=== PATIENT | female | born 1980 | race Caucasian/White ===

== ENCOUNTER 2019-01-23 19:29 | Emergency (ER) | payer BC, OTHER, SELFPAY ==
--- NOTE | 2019-01-23 19:41 | ERPHSYRPT ---
- History of Present Illness Time Seen by Provider: 01/23/19 19:41 Source: patient Exam Limitations: no limitations Physician History: 38 y/o white female presents with 3 day h/o cough, sore throat, bilat earaches and generalized body aches. no sig h/o fevers. no abd pain, no vomiting or diarrhea. however, pt has not eaten or drank much in last 3 days. Timing/Duration: day(s) (3) Cough Quality/Degree: mild, dry cough Possible Cause: no prior episodes Modifying Factors: Improves With: coughing Associated Symptoms: cough, earache (bilat), muscle aches, sore throat, No chest pain/soreness, No shortness of breath Allergies/Adverse Reactions: No Known Drug Allergies Allergy (Unverified 01/23/19 19:53) Hx Tetanus, Diphtheria Vaccination/Date Given: Yes Hx Influenza Vaccination/Date Given: Yes Hx Pneumococcal Vaccination/Date Given: No - Review of Systems Constitutional: No Symptoms Eyes: No Symptoms Ears, Nose, & Throat: Ear Pain, Throat Pain Respiratory: Cough Cardiac: No Symptoms Abdominal/Gastrointestinal: No Symptoms Genitourinary Symptoms: No Symptoms Musculoskeletal: Arthralgias, Myalgias Skin: No Symptoms Neurological: No Symptoms Psychological: No Symptoms Endocrine: No Symptoms Hematologic/Lymphatic: No Symptoms Immunological/Allergic: No Symptoms All Other Systems: Reviewed and Negative - Past Medical History Pertinent Past Medical History: No Neurological History: No Pertinent History ENT History: No Pertinent History Cardiac History: No Pertinent History Respiratory History: No Pertinent History Endocrine Medical History: No Pertinent History Musculoskeletal History: No Pertinent History GI Medical History: No Pertinent History History: No Pertinent History Psycho-Social History: Anxiety Female Reproductive Disorders: No Pertinent History - Past Surgical History Past Surgical History: Yes Neuro Surgical History: No Pertinent History Cardiac: No Pertinent History Respiratory: No Pertinent History Gastrointestinal: Cholecystectomy Genitourinary: No Pertinent History Musculoskeletal: No Pertinent History Female Surgical History: Hysterectomy, Section Other Surgical History: TONSILS,GALLBLADDER - Social History Smoking Status: Current some day smoker How long have you smoked: 5 YEARS Exposure to second hand smoke: Yes Drug Use: none Patient Lives Alone: No - Nursing Vital Signs Nursing Vital Signs: Initial Vital Signs Temperature 99.6 F 01/23/19 19:37 Pulse Rate 95 H 01/23/19 19:37 Respiratory Rate 15 01/23/19 19:37 Blood Pressure 135/78 01/23/19 19:37 O2 Sat by Pulse Oximetry 96 01/23/19 19:37 Pain Scale Pain Intensity 7 - Physical Exam General Appearance: no apparent distress, alert, anxiety Eye Exam: PERRL/EOMI, eyes nml inspection Ears, Nose, Throat Exam: normal ENT inspection, TMs normal, moist mucous membranes, pharyngeal erythema (mild) Neck Exam: normal inspection, non-tender, supple, full range of motion Respiratory Exam: normal breath sounds, lungs clear, airway intact, No chest tenderness, No respiratory distress Cardiovascular Exam: regular rate/rhythm, normal heart sounds, normal peripheral pulses Gastrointestinal/Abdomen Exam: soft, normal bowel sounds, No tenderness Pelvic Exam: not done Rectal Exam: not done Back Exam: normal inspection, normal range of motion, No CVA tenderness, No vertebral tenderness Extremity Exam: normal inspection, normal range of motion, pelvis stable Neurologic Exam: alert, oriented x 3, cooperative, 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, normal mood/affect Skin Exam: normal color, warm, dry Lymphatic Exam: No adenopathy SpO2 Interpretation: normal O2 Delivery: Room Air - Course Nursing assessment & vital signs reviewed: Yes Ordered Tests: Active Orders 24 hr Category Date Time Status IV Insertion STAT Care 01/23/19 21:07 Active Pulse Oximetry (ED) STAT Care 01/23/19 21:07 Active BMP Stat Lab 01/23/19 21:07 Ordered CBC W DIFF Stat Lab 01/23/19 21:07 Ordered [place] Screen Stat Lab 01/23/19 Ordered Medication Summary Generic Name Dose Route Start Last Admin Trade Name Freq PRN Reason Stop Dose Admin Sodium Chloride 1,000 mls @ 999 mls/hr 01/23/19 21:07 Sodium Chloride 0.9% 1000 Ml IV 01/23/19 22:07 .[id number] STA Discontinued Medications Generic Name Dose Route Start Last Admin Trade Name Freq PRN Reason Stop Dose Admin Hydrocodone Bitart/Acetaminophen 10 ml 01/23/19 21:09 Hydrocodone-Acetamin 2.5-108/5 Ml Solution PO 01/23/19 21:10 STAT STA Ondansetron HCl 4 mg 01/23/19 21:07 Zofran 4 Mg/2 Ml Vial IV 01/23/19 21:08 STAT STA Oseltamivir Phosphate 75 mg 01/23/19 21:09 Tamiflu 75mg Capsule PO 01/23/19 21:10 STAT ONE Lab/Rad Data: Laboratory Results 01/23/19 Range/Units Unknown Influenza Type A Ag POSITIVE (NEGATIVE) Influenza Type B Ag NEGATIVE (NEGATIVE) RSV (PCR) NEGATIVE (Negative) Group A Strep Antibody NEGATIVE (NEGATIVE) - Progress Progress: improved, re-examined Air Movement: good Blood Culture(s) Obtained: No Antibiotics given: No Counseled pt/family regarding: lab results, diagnosis, need for follow-up, rad results - Departure Departure Disposition: Home Clinical Impression: Influenza A Condition: Stable Critical Care Time: No Referrals: Gina Milner NP [NON-STAFF PHY W/O PRIVILEGES] - Additional Instructions: drink plenty of fluids. add ibuprofen for pain and fever. Forms: Work/School Release Form Prescriptions: Ondansetron ODT 4 MG [Zofran Odt 4 mg] 4 mg PO Q6H PRN PRN #10 tab.rapdis PRN Reason: Vomiting Hydrocodone Bit/Acetaminophen [Hydrocodone-Acetaminophen Soln] 10 ml PO Q6H # 120 ml Oseltamivir 75 mg [Tamiflu 75MG Capsule] 75 mg PO BID #10 cap
[2019-01-23 21:04] LABS: Group A Strep NEGATIVE (NEGATIVE)
[2019-01-23 21:05] LABS: INFLUENZA A POSITIVE (NEGATIVE); INFLUENZA B NEGATIVE (NEGATIVE); RESPIRATORY SYNCTIAL VIRUS NEGATIVE (Negative)
[2019-01-23] MEDS ORDERED: Sodium Chloride 0.9% 1000 ML 1,000 ML IV STA (21:07)
[2019-01-23] MEDS ORDERED: Zofran 4 MG/2 ML VIAL IV STA (21:07)
[2019-01-23] MEDS ORDERED: Tamiflu 75MG Capsule PO ONE ×2 (21:09→21:28)
[2019-01-23] MEDS ORDERED: HYDROCODONE-ACETAMIN 2.5-108/5 ML SOLUTION PO STA (21:09)
[2019-01-23] MEDS ORDERED: Zofran 4 MG/2 ML VIAL ONE (21:28)
[2019-01-23] MEDS ORDERED: HYDROCODONE-ACETAMIN 2.5-108/5 ML SOLUTION ONE (21:28)
[2019-01-23] MEDS ORDERED: Sodium Chloride 0.9% 1000 ML 1,000 ML ONE (21:28)
[2019-01-23 21:31] LABS: Absolute Neutrophil Ct (ANC) 5.98 (1.4-6.9); BASOPHIL % 0.3 % (0.0-0.4); Basophil (Absolute #) 0.03 (0-0.4); Eosinophil (Absolute #) 0.29 (0-0.5); Hematocrit 44.1 % (35-47); Hemoglobin 14.4 gm/dl (12.0-16.0); Lymphocytes % 23.6 % (24.0-44.0); Mean Corpuscular Hemoglobin 30.7 pg (26-32); Mean Corpuscular Hgb Concent. 32.7 g/dl (32-36); Mean Platelet Volume 9.9 fl (6-9.5); Monocyte (Absolute #) 1.15 (0.0-1.3); Monocytes % 11.8 % (0.0-12.0); Neutrophil % 61.3 % (36.0-66.0); Platelet Count 221 K/mm3 (150-450); Red Blood Count 4.69 M/mm3 (4.1-5.4); Red Cell Distribution Width 13.5 % (11.5-14.0); White Blood Count 9.8 K/mm3 (4.0-10.5)
[2019-01-23 21:43] LABS: ANION GAP 14.4 MEQ/L (5-15); BLOOD UREA NITROGEN 13 mg/dL (7-17); CHLORIDE 101 mmol/L (98-107); Calcium 9.3 mg/dL (8.4-10.2); Carbon Dioxide 26 mmol/L (22-30); Creatinine 1 0.89 mg/dL (0.52-1.04); Glucose 118 mg/dL (74-106); SODIUM 138 mmol/L (137-145)
[2019-01-23 22:55] VITALS: BP 118/75; PULSE 82; O2SAT 94
== END 2019-01-23 22:45 | disposition home or self-care (01) ==
LOC: ED 19:29
DX: J11.1 Influenza due to unidentified influenza virus with other respiratory manifestations (principal); R05 Cough; H92.03 Otalgia, bilateral
CPT/HCPCS: 36000; 36415; 80048; 85025; 86308; 87631; 87651; 94760; 96360; 96374; 99284; J2405; A9270-GY

== ENCOUNTER 2019-10-19 15:45 | Emergency (ER) | payer BC ==
--- NOTE | 2019-10-19 15:50 | ERPHSYRPT ---
- History of Present Illness Time Seen by Provider: 10/19/19 15:49 Source: patient Exam Limitations: no limitations Physician History: This is a morbidly obese 39-year-old white female who has a history of chronic back pain and sciatica who left work this morning approximately 11-11 30 because she felt odd and numbness on the left side of her face and felt like she was not thinking her normal self. The onset of her symptoms were approximately greater than 4 hours ago. She arrives now with only numbness of her face that feels kind of like being numbed for dental procedure. She is speaking clearly and moving all of her extremities. She has no chest pain she has no shortness of breath she has no abdominal pain. She has no history of a CVA or TIAs in the past. Patient has no documented history of hypertension. Patient denies head injury Timing/Duration: hour(s) (More than 4 hours ago. Patient states approximately between 11 AM and 1130 this morning) Severity: mild Character of Deficits: Left Facial (Numbness) Deficits: no difficulties Baseline/Normal Cognition: alert oriented x 3 Current Cognition: alert oriented x 3 Baseline Gait: walks w/o assistance Associated Symptoms: paresthesia (Left face) Allergies/Adverse Reactions: No Known Drug Allergies Allergy (Verified 10/19/19 16:20) Home Medications: No Reportable Medications [No Reported Medications] 10/19/19 [History] Hx Tetanus, Diphtheria Vaccination/Date Given: Yes Hx Influenza Vaccination/Date Given: Yes Hx Pneumococcal Vaccination/Date Given: No Travel Risk - International Travel Have you traveled outside of the country in past 3 weeks: No - Coronavirus Screening Are you exhibiting any of the following symptoms?: No Close contact with a COVID-19 positive Pt in past 14-21 Days: No - Review of Systems Constitutional: No Symptoms Eyes: No Symptoms Ears, Nose, & Throat: No Symptoms Respiratory: No Symptoms Cardiac: No Symptoms Abdominal/Gastrointestinal: No Symptoms Genitourinary Symptoms: No Symptoms Musculoskeletal: No Symptoms Skin: No Symptoms Neurological: Parasthesia (Left face) Psychological: No Symptoms Endocrine: No Symptoms Hematologic/Lymphatic: No Symptoms Immunological/Allergic: No Symptoms All Other Systems: Reviewed and Negative - Past Medical History Pertinent Past Medical History: No Neurological History: No Pertinent History ENT History: No Pertinent History Cardiac History: No Pertinent History Respiratory History: No Pertinent History Endocrine Medical History: No Pertinent History Musculoskeletal History: No Pertinent History GI Medical History: No Pertinent History History: No Pertinent History Psycho-Social History: Anxiety Female Reproductive Disorders: No Pertinent History - Past Surgical History Past Surgical History: Yes Neuro Surgical History: No Pertinent History Cardiac: No Pertinent History Respiratory: No Pertinent History Gastrointestinal: Cholecystectomy Genitourinary: No Pertinent History Musculoskeletal: No Pertinent History Female Surgical History: Hysterectomy, Section Other Surgical History: TONSILS,GALLBLADDER - Social History Smoking Status: Current some day smoker How long have you smoked: 5 YEARS Exposure to second hand smoke: Yes Drug Use: none Patient Lives Alone: No - Female History Hx Now: No - Nursing Vital Signs Nursing Vital Signs: Initial Vital Signs O2 Sat by Pulse Oximetry 95 10/19/19 16:09 Pain Scale Pain Intensity 0 - [place] Coma Scale Best Eye Response ([place]): (4) open spontaneously Best Verbal Response ([place]): (5) oriented Best Motor Response ([place]): (6) obeys commands [place] Total: 15 - Physical Exam General Appearance: no apparent distress, alert, anxiety Eye Exam: bilateral eye: normal inspection, PERRL, EOMI Ears, Nose, Throat Exam: normal ENT inspection, moist mucous membranes Neck Exam: normal inspection, non-tender, supple, full range of motion Respiratory: normal breath sounds, lungs clear, airway intact, No chest t enderness, No respiratory distress Cardiovascular: regular rate/rhythm, normal heart sounds, normal peripheral pulses Gastrointestinal: soft, normal bowel sounds, No tenderness Pelvic Exam: not done Rectal Exam: not done Back Exam: normal inspection, normal range of motion, No CVA tenderness, No vertebral tenderness Extremity Exam: normal inspection, normal range of motion, pelvis stable Mental Status: alert, oriented x 3, cooperative advertising designer Exam: normal hearing, normal speech, PERRL Coordination/Gait: normal finger to nose, normal gait, normal cerebellar function Motor/Sensory: no motor deficit, no sensory deficit, no pronator drift Skin Exam: normal color, warm, dry SpO2 Interpretation: normal O2 Delivery: Room Air - Course Nursing assessment & vital signs reviewed: Yes EKG Interpreted by Me: RATE ([id number]), Sinus Tach, NORMAL AXIS, NORMAL INTERVALS, NORMAL QRS, Other (No comparison EKG available) Ordered Tests: Active Orders 24 hr Category Date Time Status ACCUCHECK [Accucheck] STAT Care 10/19/19 16:19 Active Forestry Pilot STAT Care 10/19/19 15:54 Active EKG-ER Only STAT Care 10/19/19 15:53 Active IV Insertion STAT Care 10/19/19 15:53 Active NPO (ED) STAT Care 10/19/19 15:53 Active Pulse Oximetry (ED) STAT Care 10/19/19 15:53 Active HEAD WITHOUT CONTRAST [CT] Stat Exams 10/19/19 15:47 Completed CBC W DIFF Stat Lab 10/19/19 15:53 Completed CMP Stat Lab 10/19/19 16:10 Completed UA W/RFX UR CULTURE Stat Lab 10/19/19 15:57 Completed Urine Triage Profile Stat Lab 10/19/19 16:09 Completed Lab/Rad Data: Laboratory Result Diagrams 10/19/19 15:53 10/19/19 16:10 Laboratory Results 10/19/19 10/19/19 10/19/19 Range/Units 16:10 16:09 15:57 WBC (4.0-10.5) K/mm3 RBC (4.1-5.4) M/mm3 Hgb (12.0-16.0) gm/dl Hct (35-47) % MCV (78-100) fl MCH (26-32) pg MCHC (32-36) g/dl RDW (11.5-14.0) % Plt Count (150-450) K/mm3 MPV (7.5-11.0) fl Gran % (36.0-66.0) % Eos # (Auto) (0-0.5) Absolute Lymphs (auto) (1.0-4.6) Absolute Monos (auto) (0.0-1.3) Lymphocytes % (24.0-44.0) % Monocytes % (0.0-12.0) % Eosinophils % (0.00-5.0) % Basophils % (0.0-0.4) % Absolute Granulocytes (1.4-6.9) Basophils # (0-0.4) Sodium 137 (137-145) mmol/L Potassium 3.8 (3.5-5.1) mmol/L Chloride 103 (98-107) mmol/L Carbon Dioxide 26 (22-30) mmol/L Anion Gap 12.3 (5-15) MEQ/L BUN 15 (7-17) mg/dL Creatinine 1.01 (0.52-1.04) mg/dL Estimated GFR > 60.0 ML/MIN Glucose 189 H (74-106) mg/dL Calcium 9.0 (8.4-10.2) mg/dL Total Bilirubin 0.70 (0.2-1.3) mg/dL AST 49 H (14-36) U/L ALT 62 H (0-35) U/L Alkaline Phosphatase 68 (38-126) U/L Serum Total Protein 7.9 (6.3-8.2) g/dL Albumin 4.4 (3.5-5.0) g/dL Urine Color YELLOW (YELLOW) Urine Appearance SLIGHTLY CLOUDY (CLEAR) Urine pH 5.0 (5-6) Ur Specific [place] 1.017 (1.005-1.025) Urine Protein NEGATIVE (Negative) Urine Ketones NEGATIVE (NEGATIVE) Urine Blood SMALL (0-5) Will/ul Urine Nitrite NEGATIVE (NEGATIVE) Urine Bilirubin NEGATIVE (NEGATIVE) Urine Urobilinogen NEGATIVE (0-1) mg/dL Ur Leukocyte Esterase NEGATIVE (NEGATIVE) Urine WBC (Auto) 3-5 (0-5) /HPF Urine RBC (Auto) NONE (0-2) /HPF U Epithel Cells (Auto) RARE (FEW) /HPF Urine Bacteria (Auto) NONE (NEGATIVE) /HPF Urine Mucus (Auto) SLIGHT (NEGATIVE) /HPF Urine Culture Reflexed NO (NO) Urine Glucose NEGATIVE (NEGATIVE) mg/dL Urine Opiates Level NEGATIVE (NEGATIVE) Ur Methadone NEGATIVE (NEGATIVE) Urine Barbiturates NEGATIVE (NEGATIVE) Ur Phencyclidine (PCP) NEGATIVE (NEGATIVE) Urine Amphetamine NEGATIVE (NEGATIVE) U Benzodiazepine Level NEGATIVE (NEGATIVE) Urine Cocaine NEGATIVE (NEGATIVE) Urine Marijuana (THC) NEGATIVE (NEGATIVE) 10/19/19 Range/Units 15:53 WBC 11.1 H (4.0-10.5) K/mm3 RBC 4.51 (4.1-5.4) M/mm3 Hgb 13.9 (12.0-16.0) gm/dl Hct 43.2 (35-47) % MCV 95.8 (78-100) fl MCH 30.8 (26-32) pg MCHC 32.2 (32-36) g/dl RDW 13.4 (11.5-14.0) % Plt Count 247 (150-450) K/mm3 MPV 9.8 (7.5-11.0) fl Gran % 54.4 (36.0-66.0) % Eos # (Auto) 0.83 H (0-0.5) Absolute Lymphs (auto) 3.36 (1.0-4.6) Absolute Monos (auto) 0.83 (0.0-1.3) Lymphocytes % 30.3 (24.0-44.0) % Monocytes % 7.5 (0.0-12.0) % Eosinophils % 7.5 H (0.00-5.0) % Basophils % 0.3 (0.0-0.4) % Absolute Granulocytes 6.04 (1.4-6.9) Basophils # 0.03 (0-0.4) Sodium (137-145) mmol/L Potassium (3.5-5.1) mmol/L Chloride (98-107) mmol/L Carbon Dioxide (22-30) mmol/L Anion Gap (5-15) MEQ/L BUN (7-17) mg/dL Creatinine (0.52-1.04) mg/dL Estimated GFR ML/MIN Glucose (74-106) mg/dL Calcium (8.4-10.2) mg/dL Total Bilirubin (0.2-1.3) mg/dL AST (14-36) U/L ALT (0-35) U/L Alkaline Phosphatase (38-126) U/L Serum Total Protein (6.3-8.2) g/dL Albumin (3.5-5.0) g/dL Urine Color (YELLOW) Urine Appearance (CLEAR) Urine pH (5-6) Ur Specific [place] (1.005-1.025) Urine Protein (Negative) Urine Ketones (NEGATIVE) Urine Blood (0-5) Will/ul Urine Nitrite (NEGATIVE) Urine Bilirubin (NEGATIVE) Urine Urobilinogen (0-1) mg/dL Ur Leukocyte Esterase (NEGATIVE) Urine WBC (Auto) (0-5) /HPF Urine RBC (Auto) (0-2) /HPF U Epithel Cells (Auto) (FEW) /HPF Urine Bacteria (Auto) (NEGATIVE) /HPF Urine Mucus (Auto) (NEGATIVE) /HPF Urine Culture Reflexed (NO) Urine Glucose (NEGATIVE) mg/dL Urine Opiates Level (NEGATIVE) Ur Methadone (NEGATIVE) Urine Barbiturates (NEGATIVE) Ur Phencyclidine (PCP) (NEGATIVE) Urine Amphetamine (NEGATIVE) U Benzodiazepine Level (NEGATIVE) Urine Cocaine (NEGATIVE) Urine Marijuana (THC) (NEGATIVE) - Progress Progress: improved, re-examined Progress Note: 10/19/19 16:59 CAT scan of the head reveals no acute intracranial abnormality. Medical decision making: This patient's symptoms began greater than 4 hours prior to her arrival. They have improved. Patient is moving all her extremities she is speaking clearly. She does have some numbness sensation still on her face. Her work-up is negative for acute CVA. She has no intracranial abnormality on CAT scan. Her blood pressure is in a reasonable range. Patient is concerned about the swelling in her feet but that is been there chronically. I will give her a single dose of Lasix 20 mg intravenously. She is to follow-up with her primary care physician on TuesdayOctober 21. If her symptoms recur she is to return to the emergency department Counseled pt/family regarding: lab results, diagnosis, need for follow-up, rad results - Departure Departure Disposition: Home Clinical Impression: Left facial numbness Condition: Stable Critical Care Time: No Referrals: MYRTLE HAILE MD [Primary Care Provider] - Additional Instructions: Drink plenty of fluids. Return to the emergency department if your symptoms recur. Follow-up with your primary care physician/neurologist on the morning of 10/22/2019 by phone to make arrangements for follow-up appointment.
[2019-10-19 16:13] LABS: Absolute Neutrophil Ct (ANC) 6.04 (1.4-6.9); BASOPHIL % 0.3 % (0.0-0.4); Basophil (Absolute #) 0.03 (0-0.4); Eosinophil % 7.5 % (0.00-5.0); Eosinophil (Absolute #) 0.83 (0-0.5); Hematocrit 43.2 % (35-47); Hemoglobin 13.9 gm/dl (12.0-16.0); Lymphocyte (Absolute #) 3.36 (1.0-4.6); Lymphocytes % 30.3 % (24.0-44.0); Mean Cell Volume 95.8 fl (78-100); Mean Corpuscular Hemoglobin 30.8 pg (26-32); Mean Corpuscular Hgb Concent. 32.2 g/dl (32-36); Mean Platelet Volume 9.8 fl (7.5-11.0); Monocyte (Absolute #) 0.83 (0.0-1.3); Monocytes % 7.5 % (0.0-12.0); Neutrophil % 54.4 % (36.0-66.0); Platelet Count 247 K/mm3 (150-450); Red Blood Count 4.51 M/mm3 (4.1-5.4); Red Cell Distribution Width 13.4 % (11.5-14.0); White Blood Count 11.1 K/mm3 (4.0-10.5)
[2019-10-19 16:15] LABS: Appearance SLIGHTLY CLOUDY (CLEAR); Bilirubin NEGATIVE (NEGATIVE); Blood SMALL Ery/ul (0-5); Epithelial Cells RARE /HPF (FEW); Glucose NEGATIVE (NEGATIVE); Ketones NEGATIVE (NEGATIVE); Leukocyte Esterase NEGATIVE (NEGATIVE); Mucus SLIGHT /HPF (NEGATIVE); Nitrite NEGATIVE (NEGATIVE); Protein,Urine Dip NEGATIVE (Negative); Specific Gravity 1.017 (1.005-1.025); Urobilinogen NEGATIVE mg/dL (0-1)
--- NOTE | 2019-10-19 16:20 | XRAY ---
Indication: Numbness. Stroke. Multiple contiguous axial images obtained through the head without contrast. Comparison: None Normal appearing brain parenchyma, ventricles, and bony calvarium. Visualized paranasal sinuses and mastoid air cells are clear. Impression: Normal CT head without contrast exam. MRI brain may yield further information if there remains clinical concern.
[2019-10-19 16:23] LABS: ALBUMIN 4.4 g/dL (3.5-5.0); ALKALINE PHOSPHATASE 68 U/L (38-126); ANION GAP 12.3 MEQ/L (5-15); BLOOD UREA NITROGEN 15 mg/dL (7-17); CHLORIDE 103 mmol/L (98-107); Carbon Dioxide 26 mmol/L (22-30); Creatinine 1 1.01 mg/dL (0.52-1.04); EST GLOMERULAR FILTRATION RATE > 60.0 ML/MIN; Glucose 189 mg/dL (74-106); Potassium 3.8 mmol/L (3.5-5.1); SGOT/AST 49 U/L (14-36); SGPT/ALT 62 U/L (0-35); SODIUM 137 mmol/L (137-145); Total Protein 7.9 g/dL (6.3-8.2)
[2019-10-19 16:33] LABS: Amphetamine,Urine NEGATIVE (NEGATIVE); Barbiturate,Urine NEGATIVE (NEGATIVE); Benzodiazepine,Urine NEGATIVE (NEGATIVE); Cocaine,Urine NEGATIVE (NEGATIVE); Methadone,Urine NEGATIVE (NEGATIVE); Opiate,Urine NEGATIVE (NEGATIVE); PCP,Urine NEGATIVE (NEGATIVE); THC,Urine NEGATIVE (NEGATIVE)
[2019-10-19] MEDS ORDERED: Lasix 40 MG/4 ML ONE (17:02)
[2019-10-19 17:25] VITALS: BP 112/84; PULSE 72; O2SAT 97
[2019-10-20] MEDS ORDERED: Lasix 20 MG/2 ML IV ONE (16:59)
== END 2019-10-19 17:25 | disposition home or self-care (01) ==
LOC: ED 15:45
DX: R20.0 Anesthesia of skin (principal)
CPT/HCPCS: 36000; 36415; 70450; 80053; 80307; 81001; 82962; 85025; 93005; 93041; 94760; 96374; 99284; J1940